=== PATIENT | male | born 1955 | race Caucasian/White ===

== ENCOUNTER → 2016-03-07 | Outpatient (CLI) | payer OTHER ==
[~2016-03-07] MED LIST: HYDROCODON-ACE1 EAC5 PO; PRAVACHOL80 MG PO; TOPROL XL50 MG PO; VITAMIN D1000 INTUN PO; Zestril,Prinivil PO
== END | disposition home or self-care (01) ==
LOC: RAD 08:53
DX: N13.30 Unspecified hydronephrosis (principal); N42.83 Cyst of prostate; N19 Unspecified kidney failure; I25.10 Atherosclerotic heart disease of native coronary artery without angina pectoris; I20.9 Angina pectoris, unspecified; I10 Essential (primary) hypertension
CPT/HCPCS: 76770; 78452; 93017; 93975; A9500; J2785